=== PATIENT | female | born 1985 | race Caucasian/White ===

== ENCOUNTER 2017-11-10 22:56 | Emergency (ER) | payer OTHER ==
[~2017-11-10] VITALS: Ht 162.5 cm; Wt 59.0 kg
[2017-11-10] MEDS ORDERED: KEFLEX500 M1 PO (23:58)
== END 2017-11-11 00:40 | disposition home or self-care (01) ==
LOC: ED 22:56
DX: S60.551A Superficial foreign body of right hand, initial encounter (principal); Z88.8 Allergy status to other drugs, medicaments and biological substances; W19.XXXA Unspecified fall, initial encounter; Y93.89 Activity, other specified; Y92.89 Other specified places as the place of occurrence of the external cause; Y99.8 Other external cause status

== ENCOUNTER 2019-12-18 19:38 | Emergency (ER) | payer OTHER ==
[~2019-12-18] VITALS: Wt 59.0 kg
== END 2019-12-18 22:15 | disposition home or self-care (01) ==
LOC: ED 19:38
DX: S51.851A Open bite of right forearm, initial encounter (principal); Z88.8 Allergy status to other drugs, medicaments and biological substances; W54.0XXA Bitten by dog, initial encounter; Y93.89 Activity, other specified; Y92.89 Other specified places as the place of occurrence of the external cause; Y99.8 Other external cause status

== ENCOUNTER 2019-12-21 13:04 | Emergency (ER) | payer OTHER ==
[~2019-12-21] VITALS: Ht 162.5 cm; Wt 59.0 kg
[~2019-12-21 13:04] MED LIST: AUGMENTIN 875875 MG PO; KEFLEX500 M1 PO; MOBIC7.5 MG PO
== END 2019-12-21 13:36 | disposition home or self-care (01) ==
LOC: ED 13:04
DX: Z23 Encounter for immunization (principal); Z88.1 Allergy status to other antibiotic agents; Z91.040 Latex allergy status

== ENCOUNTER 2019-12-25 12:53 | Emergency (ER) | payer OTHER ==
[~2019-12-25] VITALS: Wt 59.0 kg
== END 2019-12-25 13:34 | disposition home or self-care (01) ==
LOC: ED 12:53
DX: Z23 Encounter for immunization (principal); Z88.8 Allergy status to other drugs, medicaments and biological substances; Z79.899 Other long term (current) drug therapy

== ENCOUNTER 2020-01-01 14:22 | Emergency (ER) | payer OTHER ==
[~2020-01-01] VITALS: Wt 59.0 kg
== END 2020-01-01 15:04 | disposition home or self-care (01) ==
LOC: ED 14:22
DX: Z23 Encounter for immunization (principal); Z88.8 Allergy status to other drugs, medicaments and biological substances; Z79.899 Other long term (current) drug therapy